=== PATIENT | female | born 1955 | race Caucasian/White ===

== ENCOUNTER 2019-11-26 11:06 | Outpatient (CLI) | payer BC, SELFPAY ==
--- NOTE | ~2019-11-26 | MM_ITS ---
EXAMINATION: MM screening priti BI w shahab HISTORY: Screening mammogram TECHNIQUE: Craniocaudal and mediolateral oblique 3-D tomosynthesis images were obtained and synthetic 2-D images were generated. CAD analysis was submitted and interpreted. COMPARISON: 10/16/2018, 06/07/2017, 05/21/2015 bilateral digital screening mammogram examinations BREAST PARENCHYMAL COMPOSITION: There are scattered areas of fibroglandular density. FINDINGS: There is no evidence of suspicious mass, calcification, or architectural distortion to sugg est malignancy in either breast. There has been no suspicious interval change. IMPRESSION: 1. No mammographic evidence of malignancy. 2. Recommend routine screening mammography in one year. BI-RADS Category 1: Negative Reviewed, dictated and finalized at location A. [employer]
== END 2019-11-26 11:07 | disposition home or self-care (01) ==
LOC: ANHIMG 11:14
PROVIDERS: PCP Internal Medicine; Visit Provider Obstetrics & Gynecology
DX: Z12.31 Encounter for screening mammogram for malignant neoplasm of breast (principal)
CPT/HCPCS: 77063; 77067

== ENCOUNTER 2020-02-09 11:34 | Outpatient (CLI) | payer BC, SELFPAY ==
--- NOTE | ~2020-02-09 | MMUS_ITS ---
EXAMINATION: MM diagnostic priti LT w shahab, US breast LT complete HISTORY: Left breast pain TECHNIQUE: ML, MLO and cc 3-D tomosynthesis images of the left breast were performed and synthetic 2- D images were generated. Rotated lateral cc view and cone compression rotated lateral craniocaudal, M LO views. CAD analysis was submitted and interpreted. High resolution breast ultrasound was performed . COMPARISON: 11/26/2019, 10/16/2018, 06/07/2017 bilateral digital screening mammogram examinations FINDINGS: MAMMOGRAPHIC FINDINGS: An approximately 3 cm circumscribed mass is noted posterosuperiorly in the left breast axillary regio n. ULTRASOUND: There is a 3.4 x 3.1 x 3.7 cm hypoechoic circumscribed solid mass with internal vascularity in the ax illary region of the left breast at 2:00 16 cm from the nipple. Ultrasound-guided biopsy is recommend ed. IMPRESSION: 1. Suspicious up to 3.7 cm solid vascular mass in the axillary region at 2:00 16 cm from nipple 2. Ultrasound-guided biopsy is recommended. BI-RADS category 4, suspicious findings. Dr. Nino telephoned the report to Dr. Pat Zhao on 02/09/2020 1349 hours Reviewed, dictated and finalized at location A. IMPRESSION: 1. Suspicious up to 3.7 cm solid vascular mass in the axillary region at 2:00 1 6 cm from nipple 2. Ultrasound-guided biopsy is recommended. BI-RADS category 4, suspicious findings. Dr. Nino telephoned the report to Dr. Pat Zhao on 02/09/2020 1349 hours
== END 2020-02-09 11:35 | disposition home or self-care (01) ==
PROVIDERS: PCP Internal Medicine; Visit Provider Obstetrics & Gynecology
DX: R92.8 Other abnormal and inconclusive findings on diagnostic imaging of breast (principal); N64.4 Mastodynia
CPT/HCPCS: 76641; 77061; 77065; G0279

== ENCOUNTER 2021-01-13 15:41 | Outpatient (CLI) | payer BC, SELFPAY ==
--- NOTE | ~2021-01-13 | XR_ITS ---
XR clavicle RT 01/13/2021 16:09 Indication: Right clavicle pain. Bone hypertrophy. Procedure: 2 views right clavicle Comparison: No prior studies for comparison. Findings: Normal anatomic alignment. No fracture, subluxation or dislocation. Port catheter identifie d overlying the right shoulder. No focal significant bone abnormalities identified. Visualized lung p arenchyma unremarkable. Impression: 1: No significant bone or joint abnormality. Reviewed, dictated and finalized at location B. Impression: 1: No significant bone or joint abnormality.
== END 2021-01-13 15:42 | disposition home or self-care (01) ==
PROVIDERS: PCP Family Medicine; Visit Provider Family Medicine
DX: M89.312 Hypertrophy of bone, left shoulder (principal)
CPT/HCPCS: 73000

== ENCOUNTER → 2021-03-21 00:18 | Outpatient (CLI) | payer BC, SELFPAY ==
[2021-03-21 21:52] LABS: SARS-CoV-2 RNA PCR Negative
== END ==
PROVIDERS: PCP Family Medicine; Visit Provider Internal Medicine Gastroenterology
DX: Z01.812 Encounter for preprocedural laboratory examination (principal); Z20.822 Contact with and (suspected) exposure to COVID-19
CPT/HCPCS: C9803; U0003; U0005

== ENCOUNTER 2021-03-24 01:41 | Day surgery (SDC) | payer BC, SELFPAY ==
[2021-03-15 11:13] VITALS: BMI 28.4
[2021-03-24 06:15] VITALS: BP 134/88; PULSE 99; RESP 16; TEMP 36.6; O2SAT 95; BMI 28.9
[2021-03-24] MEDS: LACTATED RINGERS 1,000 ML 150 ML IV CONT (06:24)
--- NOTE | 2021-03-24 07:13 | WPDANESEPPF ---
Anes - Initial Pre Proc Eval Procedure: Operation Date: 03/24/21 07:30 Proposed Procedures p Esophagogastroduodenoscopy & Colonoscopy - Jean Whipple DO Date/Time: 03/24/21 07:13 Surgeon: Jean Whipple DO Pre Op Diagnosis: GERD, esophageal dysphagia, hx of colon polyps Patient Data Age: 65 Gender: F Height: 5 ft Weight: 67.2 kg Last Vital Signs Temp 97.9 F 03/24/21 06:15 Pulse 99 03/24/21 06:15 Resp 16 03/24/21 06:15 BP 134/88 03/24/21 06:15 Pulse Ox 95 03/24/21 06:15 Allergies Allergy/AdvReac Type Severity Reaction Status Date / Time No Known Allergies Allergy Verified 03/24/21 06:14 Home Medications Medication Instructions Recorded Confirmed Type alprazolam 0.25 mg tablet 0.25 mg PO DAILY 12/07/20 03/24/21 History letrozole 2.5 mg tablet 2.5 mg PO DAILY 12/07/20 03/24/21 History naratriptan 2.5 mg tablet 2.5 mg PO DAILY PRN 12/07/20 03/24/21 History omeprazole 40 mg capsule,delayed 40 mg PO DAILY 12/07/20 03/24/21 History release zolpidem 12.5 mg tablet,extended 12.5 mg PO DAILY 12/07/20 03/24/21 History release,multiphase calcium carbonate 600 mg calcium 600 mg PO DAILY 01/13/21 03/24/21 History (1,500 mg) tablet cholecalciferol (vitamin D3) 1,250 1,250 mcg PO WEEKLY 01/13/21 03/24/21 History mcg (50,000 unit) capsule diphenoxylate-atropine 2.5 1 tablet PO QID PRN 01/13/21 03/24/21 History mg-0.025 mg tablet duloxetine 30 mg capsule,delayed 60 mg PO DAILY cap 01/13/21 03/24/21 History release magnesium oxide 400 mg PO BID 01/13/21 03/24/21 History potassium chloride 20 mEq 20 meq PO BID 01/13/21 03/24/21 History tablet,extended release simvastatin 20 mg tablet 20 mg PO DAILY #90 tablet 01/13/21 03/24/21 Rx Patient hx anesthesia problems: none Family hx anesthesia problems: none PMFSH Past Medical History Medical History (Updated 03/24/21 @ 07:13 by Ronal Manuel MD) Anxiety History of breast cancer Hyperlipemia Migraine Surgical History Surgical History History of cholecystectomy History of hysterectomy Family History Family History Mother Family history of blood dyscrasia Depression Hypertension Sibling Hypertension Patient's sister is in good health Father Family history of primary malignant neoplasm of liver, Onset Age: 70 Patient's father is Other Family history of malignant neoplasm of thyroid Family history of migraine headaches Social History Social History Smoking status: Never smoker Alcohol intake: current Living arrangements: with family Spiritual care concerns: No Anes - Eval Final PreProcedure Day of Procedure 03/24/21 07:13 Patient weight: overweight Heart: regular rate and rhythm Lungs: clear to auscultation Airway: Mallampati scale class II Neurological: alert and oriented Last oral intake: >/= 8 hours ASA classification: II Emergent: no Anesthetic plan: proceed Anesthesia type and monitoring: general GIVS and standard monitoring Informed Consent: The patient's anesthetic plan and its attendant risks and benefits were discussed with the patient/family/POA. Questions were solicited and answers provided to the satisfaction of the patient/family/POA.
--- NOTE | 2021-03-24 07:24 | WPDGICN ---
GI Consult Note Consult date/time: 03/24/21 07:24 HPI: Reason for visit EGD and colonoscopy. This very pleasant lady seen at the request of the primary physician. Impression: GERD with dysphagia. We will evaluate for underlying ring or stricture. Colon cancer polyp screening. Breast cancer status post chemo and radiation therapy. Anxiety. HLD. Migraine cephalgia. Recommendation: EGD and colonoscopy. History: This very pleasant lady is here for EGD and colonoscopy. She is here for screening colonoscopy. She has a history of hyperplastic colon polyps. Patient does have a history of GERD well controlled on medication. She has been having dysphagia to solid foods for the last 6 months. Physical examination: General: very pleasant patient in no acute distress. HEENT: Head was normocephalic sclerae is clear mouth without masses neck was supple. Heart: Rate rhythm regular without S3 or S4. Lungs: CTA. Abdomen: Soft with no guarding or rigidity. Bowel sounds were active. Neurologic: Cranial nerves 2 through 12 intact. No focal defects. No clonus. Musculoskeletal system: Revealed no joint tenderness or swelling no muscle atrophy. Extremities: Reveal no significant edema. Skin: Warm and dry with normal turgor. Mental status: intact. Patient is alert and oriented. Review of Systems Review of Systems: All systems reviewed & are unremarkable except as noted in HPI and below PMFSH Past Medical History Medical History (Updated 03/24/21 @ 07:13 by Ronal Manuel MD) Anxiety History of breast cancer Hyperlipemia Migraine Surgical History Surgical History History of cholecystectomy History of hysterectomy Family History Family History Mother Family history of blood dyscrasia Depression Hypertension Sibling Hypertension Patient's sister is in good health Father Family history of primary malignant neoplasm of liver, Onset Age: 70 Patient's father is Other Family history of malignant neoplasm of thyroid Family history of migraine headaches Social History Social History Smoking status: Never smoker Alcohol intake: current Living arrangements: with family Spiritual care concerns: No Meds Home Medications and Allergies Home Medications Medication Instructions Recorded Confirmed Type alprazolam 0.25 mg tablet 0.25 mg PO DAILY 12/07/20 03/24/21 History letrozole 2.5 mg tablet 2.5 mg PO DAILY 12/07/20 03/24/21 History naratriptan 2.5 mg tablet 2.5 mg PO DAILY PRN 12/07/20 03/24/21 History omeprazole 40 mg capsule,delayed 40 mg PO DAILY 12/07/20 03/24/21 History release zolpidem 12.5 mg tablet,extended 12.5 mg PO DAILY 12/07/20 03/24/21 History release,multiphase calcium carbonate 600 mg calcium 600 mg PO DAILY 01/13/21 03/24/21 History (1,500 mg) tablet cholecalciferol (vitamin D3) 1,250 1,250 mcg PO WEEKLY 01/13/21 03/24/21 History mcg (50,000 unit) capsule diphenoxylate-atropine 2.5 1 tablet PO QID PRN 01/13/21 03/24/21 History mg-0.025 mg tablet duloxetine 30 mg capsule,delayed 60 mg PO DAILY cap 01/13/21 03/24/21 History release magnesium oxide 400 mg PO BID 01/13/21 03/24/21 History potassium chloride 20 mEq 20 meq PO BID 01/13/21 03/24/21 History tablet,extended release simvastatin 20 mg tablet 20 mg PO DAILY #90 tablet 01/13/21 03/24/21 Rx Allergies Allergy/AdvReac Type Severity Reaction Status Date / Time No Known Allergies Allergy Verified 03/24/21 06:14 Vital Signs Vital Signs - 24 hr 03/24/21 06:15 Temperature 36.6 C Pulse Rate 99 Respiratory Rate 16 Blood Pressure 134/88 Pulse Oximetry 95
[2021-03-24] MEDS: BENZOCAINE (*SP) 60 ML SPRAY CAN (HURRICAINE) 1 SPRAY MUCOUS MEM (07:28)
[2021-03-24 07:59] VITALS: BP 95/31; PULSE 81; RESP 18; O2SAT 92
[2021-03-24 08:09] VITALS: BP 105/65; PULSE 77; RESP 22; O2SAT 94
[2021-03-24 08:19] VITALS: BP 100/56; PULSE 71; RESP 16; O2SAT 93
== END 2021-03-24 08:30 | disposition home or self-care (01) ==
PROVIDERS: PCP Family Medicine; Visit Provider Internal Medicine Gastroenterology
PROC: 0DJ08ZZ Inspection of Upper Intestinal Tract, Via Natural or Artificial Opening Endoscopic (ICD-10-PCS; CPT 43235; principal; 2021-03-24 07:30)
DX: K21.9 Gastro-esophageal reflux disease without esophagitis (principal); R13.10 Dysphagia, unspecified; K29.50 Unspecified chronic gastritis without bleeding; K44.9 Diaphragmatic hernia without obstruction or gangrene; Z12.11 Encounter for screening for malignant neoplasm of colon; K63.5 Polyp of colon; K57.30 Diverticulosis of large intestine without perforation or abscess without bleeding; K64.8 Other hemorrhoids; E78.5 Hyperlipidemia, unspecified; F41.9 Anxiety disorder, unspecified; Z85.3 Personal history of malignant neoplasm of breast; Z92.21 Personal history of antineoplastic chemotherapy; Z92.3 Personal history of irradiation
CPT/HCPCS: 45380; 43239; 43450; 87081; 88305; 88342; J2704; J7120

== ENCOUNTER 2022-08-01 11:38 | Outpatient (CLI) | payer MEDICARE, BC, SELFPAY | END 2022-08-01 11:39 | disposition home or self-care (01) | LOC: ANHGOSHLAB 11:41 | PROVIDERS: PCP Family Medicine; Visit Provider Family Medicine | DX: E78.5 Hyperlipidemia, unspecified (principal); F41.9 Anxiety disorder, unspecified; G47.00 Insomnia, unspecified; Z11.59 Encounter for screening for other viral diseases; Z79.899 Other long term (current) drug therapy | CPT/HCPCS: 36415 ==